=== PATIENT | female | born 1980 | race Caucasian/White ===

== ENCOUNTER 2017-08-06 22:16 | Emergency (ER) | payer SELFPAY ==
[~2017-08-06] VITALS: Ht 170.2 cm; Wt 81.8 kg
[2017-08-06] MEDS ORDERED: TUSSIONEX PENN115 ML PO (23:11)
[2017-08-06] MEDS ORDERED: PREDNISONE20 M1 PO (23:11)
[2017-08-06 23:45] VITALS: BP 154/88
== END 2017-08-06 23:45 | disposition home or self-care (01) ==
LOC: ED 22:16
DX: G54.0 Brachial plexus disorders (principal); J40 Bronchitis, not specified as acute or chronic; F17.200 Nicotine dependence, unspecified, uncomplicated; F90.9 Attention-deficit hyperactivity disorder, unspecified type; J35.1 Hypertrophy of tonsils
CPT/HCPCS: J1885

== ENCOUNTER 2019-07-02 13:29 | Emergency (ER) | payer SELFPAY ==
[~2019-07-02 13:29] MED LIST: PREDNISONE20 M1 PO; TUSSIONEX PENN115 ML PO
[2019-07-02] MEDS ORDERED: CLEOCIN HCL150 M1 PO (13:46)
[2019-07-02 14:26] LABS: EOS # 0.3 (0.04-0.40); EOS % 2.8 % (1.0-5.0); HEMATOCRIT 42.5 % (37.0-47.0); HEMOGLOBIN 14.5 g/dL (12.5-16.0); LYMPH# 3.1 (1.50-4.00); MEAN CELL VOLUME 90 fl (78-100); MEAN CORPUSCULAR HEMOGLOBIN 31 pg (27-31); MEAN CORPUSCULAR HGB CONC 34 g/dL (33-37); MEAN PLATELET VOLUME 8.8 fl (7.4-10.4); MONO # 0.5 (0.20-0.80); NEU # 6.3 (1.40-6.50); PLATELET COUNT 360 K/mm3 (130-400); RED BLOOD COUNT 4.74 M/mm3 (4.10-5.30); WHITE BLOOD COUNT 10.3 K/mm3 (4.8-10.8)
[2019-07-02 14:34] LABS: POTASSIUM 3.9 mmol/L (3.5-5.1)
[2019-07-02] MEDS ORDERED: BACTRIM DS TAB1 EACH PO (15:20)
[2019-07-02] MEDS ORDERED: AUGMENTIN 875-1 EAC1 PO (15:20)
[2019-07-02 15:31] VITALS: BP 131/93
== END 2019-07-02 15:32 | disposition home or self-care (01) ==
LOC: ED 13:29
PROVIDERS: Physician Assistant
DX: L03.211 Cellulitis of face (principal); F17.210 Nicotine dependence, cigarettes, uncomplicated; Z88.8 Allergy status to other drugs, medicaments and biological substances
CPT/HCPCS: A4216; J0696; J2930; Q9967

== ENCOUNTER 2021-04-19 15:05 | Emergency (ER) | payer SELFPAY ==
[~2021-04-19 15:05] MED LIST changes: +AUGMENTIN 875-1 EAC1 PO; +BACTRIM DS TAB1 EACH PO; +CLEOCIN HCL150 M1 PO
[2021-04-19] MEDS ORDERED: CYCLOBENZAPRINE10 M1 PO (17:40)
[2021-04-19] MEDS ORDERED: NORCO 325 MG-51 TA1 PO (17:49)
[2021-04-19 17:56] VITALS: BP 142/72
== END 2021-04-19 17:57 | disposition home or self-care (01) ==
LOC: ED 15:05
DX: M50.10 Cervical disc disorder with radiculopathy, unspecified cervical region (principal); M62.838 Other muscle spasm; F17.210 Nicotine dependence, cigarettes, uncomplicated; Z88.1 Allergy status to other antibiotic agents
CPT/HCPCS: J1885

== ENCOUNTER → 2022-04-19 | Outpatient (CLI) | payer BC ==
[~2022-04-19] MED LIST changes: +CYCLOBENZAPRINE10 M1 PO; +NORCO 325 MG-51 TA1 PO
[2022-04-19 16:20] LABS: CLUE CELLS NOT OBSERVED (Not Observd)
== END ==
LOC: LAB 11:47
PROVIDERS: Nurse Practitioner
DX: N89.8 Other specified noninflammatory disorders of vagina (principal)
CPT/HCPCS: Q0111

== ENCOUNTER 2022-04-30 19:55 | Emergency (ER) | payer BC ==
[~2022-04-30] VITALS: Ht 167.6 cm; Wt 83.2 kg
[2022-04-30 20:54] LABS: BASO # 0.04 K/mm3 (0.02-0.10); EOS # 0.26 K/mm3 (0.04-0.40); EOS % 2.7 % (1.0-5.0); HEMATOCRIT 37.6 % (37.0-47.0); HEMOGLOBIN 12.8 g/dL (12.5-16.0); LYMPH# 2.71 K/mm3 (1.50-4.00); MEAN CELL VOLUME 91 fl (78-100); MEAN CORPUSCULAR HEMOGLOBIN 31 pg (27-31); MEAN CORPUSCULAR HGB CONC 34 g/dL (33-37); MEAN PLATELET VOLUME 8.4 fl (7.4-10.4); MONO # 0.52 K/mm3 (0.20-0.80); NEU # 6.19 K/mm3 (1.40-6.50); PLATELET COUNT 312 K/mm3 (130-400); RED BLOOD COUNT 4.13 M/mm3 (4.10-5.30); RED CELL DISTRIBUTION WIDTH 12.7 % (11.5-14.5); WHITE BLOOD COUNT 9.7 K/mm3 (4.8-10.8)
[2022-04-30 21:04] LABS: URINE APPEARANCE HAZY; URINE BILIRUBIN NEGATIVE (NEGATIVE); URINE BLOOD 250 ery/uL (NEGATIVE); URINE COLOR YELLOW; URINE GLUCOSE NEGATIVE (NEGATIVE); URINE KETONE NEGATIVE (NEGATIVE); URINE LEUKOCYTE ESTERASE 1+ (NEGATIVE); URINE MUCUS PRESENT (NOT PRESENT); URINE NITRATE POSITIVE (NEGATIVE); URINE PROTEIN(semi-quant) TRACE (NEGATIVE); URINE UROBILINOGEN NORMAL (NORMAL); URINE WBC 16-30 /hpf (0-3)
[2022-04-30 21:04] LABS: POTASSIUM 3.8 mmol/L (3.5-5.1)
[2022-04-30 21:05] LABS: CALCIUM 9.2 mg/dL (8.3-10.5)
[2022-04-30] MEDS ORDERED: SEPTRA DS 8001 TAB PO (23:31)
[2022-04-30 23:40] VITALS: BP 114/90
== END 2022-04-30 23:40 | disposition home or self-care (01) ==
LOC: ED 19:55
PROVIDERS: Family Medicine
DX: N39.0 Urinary tract infection, site not specified (principal); Z32.02 Encounter for pregnancy test, result negative; Z88.1 Allergy status to other antibiotic agents
CPT/HCPCS: J0696; Q9967

== ENCOUNTER → 2022-05-31 | Outpatient (CLI) | payer BC ==
[~2022-05-31] MED LIST changes: +SEPTRA DS 8001 TAB PO
== END ==
LOC: RAD 07:35
DX: K76.9 Liver disease, unspecified (principal)

== ENCOUNTER → 2023-01-18 | Outpatient (CLI) | payer OTHER ==
[~2023-01-18] MED LIST changes: +ESCITALOPRAM10 MG PO; +MIXED AMPHETAMI30 M1 PO; +ONDANSETRON HYDR4 MG PO
== END ==
LOC: LAB 18:48
DX: R30.9 Painful micturition, unspecified (principal)

== ENCOUNTER → 2023-01-25 | Outpatient (CLI) | payer OTHER ==
[2023-01-25 09:39] LABS: BASO # 0.02 K/mm3 (0.02-0.10); EOS # 0.19 K/mm3 (0.04-0.40); EOS % 2.7 % (1.0-5.0); HEMATOCRIT 40.9 % (37.0-47.0); HEMOGLOBIN 13.7 g/dL (12.5-16.0); MEAN CELL VOLUME 91 fl (78-100); MEAN CORPUSCULAR HEMOGLOBIN 31 pg (27-31); MEAN CORPUSCULAR HGB CONC 34 g/dL (33-37); MEAN PLATELET VOLUME 8.4 fl (7.4-10.4); MONO # 0.26 K/mm3 (0.20-0.80); NEU # 4.26 K/mm3 (1.40-6.50); PLATELET COUNT 290 K/mm3 (130-400); RED BLOOD COUNT 4.48 M/mm3 (4.10-5.30); RED CELL DISTRIBUTION WIDTH 12.3 % (11.5-14.5)
[2023-01-25 09:41] LABS: ALBUMIN 4.4 g/dL (3.5-5.0); POTASSIUM 4.5 mmol/L (3.5-5.1)
[2023-01-25 09:42] LABS: CALCIUM 10.2 mg/dL (8.3-10.5)
[2023-01-25 09:44] LABS: TOTAL PROTEIN 7.3 g/dL (6.4-8.3)
[2023-01-25 09:45] LABS: TOTAL BILIRUBIN 0.5 mg/dL (0.2-1.2)
== END ==
LOC: RAD 09:07
PROVIDERS: Physician Assistant
DX: Z00.00 Encounter for general adult medical examination without abnormal findings (principal); Z13.220 Encounter for screening for lipoid disorders; Z13.1 Encounter for screening for diabetes mellitus; Z13.29 Encounter for screening for other suspected endocrine disorder; M43.17 Spondylolisthesis, lumbosacral region; M47.816 Spondylosis without myelopathy or radiculopathy, lumbar region; K90.9 Intestinal malabsorption, unspecified; N89.8 Other specified noninflammatory disorders of vagina; R10.32 Left lower quadrant pain; N92.6 Irregular menstruation, unspecified

== ENCOUNTER → 2024-02-21 | Outpatient (CLI) | payer OTHER ==
[2024-02-21 17:09] LABS: BASO # 0.02 K/mm3 (0.02-0.10); EOS # 0.14 K/mm3 (0.04-0.40); EOS % 1.7 % (1.0-5.0); HEMATOCRIT 40.9 % (37.0-47.0); HEMOGLOBIN 13.7 g/dL (12.5-16.0); LYMPH# 2.94 K/mm3 (1.50-4.00); MEAN CELL VOLUME 91 fl (78-100); MEAN CORPUSCULAR HEMOGLOBIN 30 pg (27-31); MEAN CORPUSCULAR HGB CONC 34 g/dL (33-37); MEAN PLATELET VOLUME 8.5 fl (7.4-10.4); MONO # 0.28 K/mm3 (0.20-0.80); NEU # 4.95 K/mm3 (1.40-6.50); PLATELET COUNT 330 K/mm3 (130-400); RED BLOOD COUNT 4.52 M/mm3 (4.10-5.30); RED CELL DISTRIBUTION WIDTH 12.5 % (11.5-14.5); WHITE BLOOD COUNT 8.3 K/mm3 (4.8-10.8)
[2024-02-21 17:17] LABS: ALBUMIN 4.5 g/dL (3.5-5.0)
[2024-02-21 17:18] LABS: CALCIUM 9.6 mg/dL (8.3-10.5)
[2024-02-21 17:19] LABS: TOTAL PROTEIN 7.5 g/dL (6.4-8.3)
[2024-02-21 17:21] LABS: TOTAL BILIRUBIN 0.7 mg/dL (0.2-1.2)
[2024-02-22 13:14] LABS: FOLLICLE STIMULATING HORMONE 6.2 mIU/mL (()); LUTENIZING HORMONE 10.5 mIU/mL (()); PROGESTERONE 4.9 ng/mL (())
== END ==
LOC: LAB 16:25
PROVIDERS: Physician Assistant
DX: Z13.1 Encounter for screening for diabetes mellitus (principal); N95.1 Menopausal and female climacteric states; K90.9 Intestinal malabsorption, unspecified; E78.5 Hyperlipidemia, unspecified; D64.9 Anemia, unspecified

== ENCOUNTER → 2024-07-09 | Outpatient (CLI) | payer OTHER | LOC: RAD 13:39 | DX: M79.672 Pain in left foot (principal) ==

== ENCOUNTER → 2024-07-18 | Outpatient (CLI) | payer OTHER | LOC: RAD 08:41 | DX: M47.22 Other spondylosis with radiculopathy, cervical region (principal); M48.07 Spinal stenosis, lumbosacral region ==